=== PATIENT | male | born 1960 | race African-American/Black ===

== ENCOUNTER 2018-02-10 22:21 | Emergency (ER) | payer OTHER ==
[~2018-02-10] VITALS: Ht 182.9 cm; Wt 80.7 kg
[~2018-02-10 22:21] MED LIST: ALBUTEROL SULF8.5 GM INH; BENADRYL50 MG ORAL; CEPHALEXIN500 MG ORAL; CIPROFLOXACIN250 MG PO; CYCLOBENZAPRINE10 MG ORAL; EFFEXOR XR150 MG ORAL; IBUPROFEN600 MG ORAL; LISINOPRIL2.5 MG ORAL; LISINOPRIL20 MG ORAL; MEDROL DOSEPAK4 MG ORAL; NAPROXEN500 M2 ORAL; NORCO 10/3251 EA ORAL; NORCO 5-325 TA1 EACH ORAL; NORVIR100 MG ORAL; PAROXETINE HC12.5 MG ORAL; PERMETHRIN60 GM TOPIC; PREDNISONE20 M1 PO; PREDNISONE20 MG ORAL
[2018-02-11 00:24] VITALS: BP 114/73
--- NOTE | 2018-02-11 00:58 | Emergency Room Report ---
History of Present Illness General Chief Complaint: General Complaint Source: Patient Present Illness HPI Is a 57-year-old male with a history of schizoaffective disorder and hypertension. Also history of cocaine abuse. He was here last week for the same complaint. He said he does not like his life. Complaining of feeling depressed. Denies any nausea vomiting. No particular plan. He recently moved here from [place]. He said he found his son but he did not want anything to do with the patient. He is been homeless. He by a ticket to go back to [place] said that he has nothing to go therefore. He felt depressed and wanted a place to stay. Allergies: Coded Allergies: PENICILLINS (Verified Allergy, Unknown, 02/10/18) Patient History Past Medical History: see triage record, old chart reviewed Past Surgical History: none Family History: none Social History: tobacco use, drug use, lives alone Immunizations: other Reviewed Nursing Documentation: PMH: Agreed; PSxH: Agreed Nursing Documentation-PMH Past Medical History: No History, Except For Hx Hypertension: Yes Hx Cancer: Yes - bladder Hx Neurological Problems: Yes - hiv Review of Systems ENT: Denies: sore throat Cardiovascular: Denies: chest pain, palpitations Gastrointestinal/Abdominal: Denies: nausea, vomiting, diarrhea Musculoskeletal: Denies: back problems Skin: Denies: rash Neurological: Denies: BOSE, seizures All Other Systems: negative except mentioned in HPI Physical Exam Vital Signs Date Time Temp Pulse Resp B/P (MAP) Pulse Ox O2 Delivery O2 Flow Rate FiO2 02/10/18 22:31 98.8 91 15 114/73 98 Room Air vitals normal Sp02 EP Interpretation: reviewed, normal General Appearance: alert/responsive, no apparent distress, non-toxic Head: normocephalic, atraumatic Eyes: PERRL, EOMI ENT: oropharynx normal Neck: supple/symm/no masses Respiratory: effort normal, no rhonchi, no wheezing Cardiovascular: no murmur, gallop, rub Gastrointestinal: non-tender, no mass, non-distended, no rebound/guarding, normal bowel sounds Musculoskeletal: gait & station normal Neurologic: oriented x3, sensory intact, motor strength/tone normal Skin: no rash, normal palpation Medical Decision Making Diagnostic Impression: Primary Impression: Depression Qualified Codes: F32.1 - Major depressive disorder, single episode, moderate Additional Impression: Cocaine abuse ER Course Patient feeling depressed. Probably complicated by living situation, social issue and drug abuse. No particular plans. He said he vomited ticket to go back to [place] next week. Said he want a place to sleep tonight. He is eating drinking here without a problem. No particular plan. At this moment in time, no criteria for 5150. This patient is a chronic risk of self injury due to poor impulse control, limited coping skills, and judgment intermittently impaired by intoxication. I believe that the available clinical evidence to suggest that these characteristics derived primarily from personality disorder and are likely very stable over time. Hospitalization would likely attenuate risk of self-harm only during fci period, without lasting risk reduction. Serious self-harm , while possible, would likely be inadvertent, and because of impulsivity, and foreseeable. For these reasons, I do not believe hospitalization would provide meaningful reduction in risk of self-harm. Last Vital Signs Date Time Temp Pulse Resp B/P (MAP) Pulse Ox O2 Delivery O2 Flow Rate FiO2 02/11/18 00:24 98.8 98 15 114/73 98 Room Air Status: improved Disposition: HOME, SELF-CARE Condition: Stable Additional Instructions: Stop using cocaine. Follow-up with mental health within a week. Return if symptom worsen. Mark Julien MD Feb 11, 2018 00:58
[2018-02-11 05:01] VITALS: BP 112/70
== END 2018-02-11 05:00 | disposition home or self-care (01) ==
LOC: MERGE 23:00 → EMR 23:00
DX: F32.9 Major depressive disorder, single episode, unspecified (principal); F14.10 Cocaine abuse, uncomplicated; I10 Essential (primary) hypertension; Z85.51 Personal history of malignant neoplasm of bladder; Z88.0 Allergy status to penicillin
CPT/HCPCS: 99284

== ENCOUNTER 2018-02-26 00:54 | Emergency (ER) | payer OTHER ==
[~2018-02-26] VITALS: Ht 177.8 cm; Wt 81.6 kg
--- NOTE | 2018-02-26 00:56 | Emergency Room Report ---
History of Present Illness General Source: Patient, EMS Present Illness HPI Patient is a 57-year-old male presented after increased difficulty with breathing. Patient had gradual onset of symptoms. Patient reports having onset after smoking a cigarette. He had prior history of COPD. Patient had been noncompliant with albuterol. Patient states he smokes regularly. Patient denies any fever. He reports having increased nonproductive cough. He denies any focal chest pain. Patient had prior history of hypertension but is noncompliant with his medications. He states he is previously been prescribed lisinopril Allergies: Coded Allergies: PENICILLIN G (Unverified Allergy, Unknown, 02/15/15) PENICILLINS (Unverified Allergy, Unknown, 07/09/14) Patient History Past Medical History: see triage record Reviewed Nursing Documentation: PMH: Agreed; PSxH: Agreed Review of Systems All Other Systems: negative except mentioned in HPI Physical Exam Sp02 EP Interpretation: reviewed, normal General Appearance: normal inspection, well appearing, no apparent distress, alert, GCS 15 Head: atraumatic ENT: normal ENT inspection, hearing grossly normal, normal voice Neck: normal inspection, full range of motion, supple, no bony tend Respiratory: normal inspection, lungs clear, normal breath sounds, no respiratory distress, no retraction, no wheezing Cardiovascular #1: regular rate, rhythm, no edema Gastrointestinal: normal inspection, normal bowel sounds, non tender, soft, no guarding, no hernia Genitourinary: no CVA tenderness Musculoskeletal: normal inspection, back normal, normal range of motion Neurologic: normal inspection, alert, oriented x3, responsive, marriage and family therapist III-XII nml as tested, motor strength/tone normal, speech normal Psychiatric: normal inspection, judgement/insight normal, mood/affect normal Skin: normal inspection, normal color, no rash Medical Decision Making Diagnostic Impression: Primary Impression: COPD exacerbation Additional Impression: Hypertension ER Course Patient presented for shortness of breath. Differential included but was not limited to anemia, pneumonia, pneumothorax, myocardial infarction, pericardial effusion, congestive heart failure, acidosis. Because of complexity of patient' s case laboratory testing and imaging studies were ordered. Patient was noted to have elevated blood pressure initially. He was given IV Cardizem as well as IV Ativan. Patient was noted to have prior history of cocaine abuse. Patient was given a breathing treatment as he appears to have some difficulty with breathing. Patient's troponin was noted to be negative. EKG showed no evidence of ischemic changes.Patient was noted to have marked improvement in his blood pressure after treatment.Patient appears to be stable for discharge. Patient was advised to follow-up with his primary care physician and to be compliant with his medications. Labs Test 02/26/18 01:36 White Blood Count 5.7 K/UL (4.8-10.8) Red Blood Count 5.24 M/UL (4.70-6.10) Hemoglobin 15.3 G/DL (14.2-18.0) Hematocrit 45.4 % (42.0-52.0) Mean Corpuscular Volume 87 FL (80-99) Mean Corpuscular Hemoglobin 29.2 PG (27.0-31.0) Mean Corpuscular Hemoglobin Concent 33.8 G/DL (32.0-36.0) Red Cell Distribution Width 13.2 % (11.6-14.8) Platelet Count 262 K/UL (150-450) Mean Platelet Volume 7.0 FL (6.5-10.1) Neutrophils (%) (Auto) 70.6 % (45.0-75.0) Lymphocytes (%) (Auto) 20.9 % (20.0-45.0) Monocytes (%) (Auto) 6.1 % (1.0-10.0) Eosinophils (%) (Auto) 0.8 % (0.0-3.0) Basophils (%) (Auto) 1.7 % (0.0-2.0) Sodium Level 143 MMOL/L (136-145) Potassium Level 3.6 MMOL/L (3.5-5.1) Chloride Level 105 MMOL/L (98-107) Carbon Dioxide Level 29 MMOL/L (21-32) Anion Gap 9 mmol/L (5-15) Blood Urea Nitrogen 15 mg/dL (7-18) Creatinine 1.4 MG/DL (0.55-1.30) Estimat Glomerular Filtration Rate > 60 mL/min (>60) Glucose Level 106 MG/DL (74-106) Calcium Level 9.2 MG/DL (8.5-10.1) Troponin I 0.000 ng/mL (0.000-0.056) EKG Diagnostic Results Rate: normal Rhythm: NSR - 87 ST Segments: no acute changes Status: improved Disposition: HOME, SELF-CARE Condition: Stable Scripts Prednisone* (PREDNISONE*) 20 Mg Tablet 40 MG ORAL DAILY, #10 TAB Prov: aFb Holbrook MD 02/26/18 Albuterol Sulfate* (ALBUTEROL SULFATE MDI*) 8.5 Gm Hfa.aer.ad 2 PUFF INH Q4H PRN for cough/wheezing, #1 EA 0 Refills Prov: Fab Holbrook MD 02/26/18 Fab Holbrook MD Feb 26, 2018 00:56
[2018-02-26] MEDS ORDERED: Albuterol/Ipratropium 3ml neb HHN ONE (01:00)
[2018-02-26] MEDS ORDERED: LORazepam Inj 2mg/ml 1ml IV ONE (01:00)
[2018-02-26 01:12] VITALS: BP 160/101
[2018-02-26] MEDS ORDERED: Albuterol ud Inhalation ONE (01:20)
[2018-02-26] MEDS ORDERED: Albuterol/Ipratropium 3ml neb ONE (01:28)
[2018-02-26 01:53] LABS: BASOPHILS % (AUTO) 1.7 % (0.0-2.0); EOSINOPHILS % (AUTO) 0.8 % (0.0-3.0); HEMATOCRIT 45.4 % (42.0-52.0); HEMOGLOBIN 15.3 G/DL (14.2-18.0); LYMPHOCYTES % (AUTO) 20.9 % (20.0-45.0); MEAN CORPUSCULAR VOLUME 87 FL (80-99); MONOCYTES % (AUTO) 6.1 % (1.0-10.0); NEUTROPHILS % (AUTO) 70.6 % (45.0-75.0); PLATELET COUNT 262 K/UL (150-450); RED BLOOD COUNT 5.24 M/UL (4.70-6.10); RED CELL DISTRIBUTION WIDTH 13.2 % (11.6-14.8); WHITE BLOOD COUNT 5.7 K/UL (4.8-10.8)
[2018-02-26 02:04] LABS: ANION GAP 9 mmol/L (5-15); BLOOD UREA NITROGEN 15 mg/dL (7-18); CALCIUM 9.2 MG/DL (8.5-10.1); CARBON DIOXIDE 29 MMOL/L (21-32); CHLORIDE 105 MMOL/L (98-107); CREATININE 1.4 MG/DL (0.55-1.30); POTASSIUM 3.6 MMOL/L (3.5-5.1); SODIUM 143 MMOL/L (136-145)
[2018-02-26 02:15] VITALS: BP 173/103
[2018-02-26] MEDS ORDERED: dilTIAZem HCl 25mg/5ml Inj IVP ONE (02:15)
[2018-02-26 02:27] LABS: ALANINE AMINOTRANSFERASE 21 U/L (12-78); ALBUMIN 3.8 G/DL (3.4-5.0); ALBUMIN/GLOBULIN RATIO 0.8 (1.0-2.7); ALKALINE PHOSPHATASE 63 U/L (46-116); ASPARTATE AMINO TRANSFERASE 20 U/L (15-37); BILIRUBIN,TOTAL 0.3 MG/DL (0.2-1.0); CKMB 1.1 NG/ML (0.0-3.6); CREATINE KINASE 182 U/L (26-308)
[2018-02-26] MEDS ORDERED: ALBUTEROL SULF8.5 GM INH (02:37)
[2018-02-26] MEDS ORDERED: PREDNISONE20 MG ORAL (02:37)
[2018-02-26 03:27] VITALS: BP 147/84
== END 2018-02-26 03:27 | disposition home or self-care (01) ==
LOC: EDBD 00:54 → EMR 01:02
DX: J44.1 Chronic obstructive pulmonary disease with (acute) exacerbation (principal); I10 Essential (primary) hypertension; R06.02 Shortness of breath; F17.210 Nicotine dependence, cigarettes, uncomplicated; Z88.0 Allergy status to penicillin
CPT/HCPCS: 36415; 71045; 80053; 80307; 82550; 82553; 83880; 84484; 85025; 93005; 94640; 96374; 96375; 99284; J7620

== ENCOUNTER 2018-05-20 03:27 | Emergency (ER) | payer OTHER ==
--- NOTE | 2018-05-20 06:30 | NUR ---
ED Nurse Note: Refer to paper charting.
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
== END 2018-05-20 06:30 | disposition home or self-care (01) ==
LOC: EMR 03:27
DX: F14.10 Cocaine abuse, uncomplicated (principal); I10 Essential (primary) hypertension; E11.9 Type 2 diabetes mellitus without complications; F32.9 Major depressive disorder, single episode, unspecified; Z88.0 Allergy status to penicillin
CPT/HCPCS: 99282